=== PATIENT | female | born 1970 | race Caucasian/White ===

== ENCOUNTER 2017-05-25 17:06 | Outpatient (CLI) | END 2017-05-25 17:07 | disposition home or self-care (01) | LOC: LAB 17:06 | PROVIDERS: ATTEND Emergency Medicine | DX: B35.3 Tinea pedis (principal); I10 Essential (primary) hypertension | CPT/HCPCS: 36415; 80053; 85025 ==

== ENCOUNTER 2017-06-13 15:34 | Outpatient (CLI) ==
[2017-06-14 12:00] VITALS: BMI 18.6
== END 2017-06-13 15:35 | disposition left against medical advice (07) ==
LOC: AMBL 15:34
PROVIDERS: ATTEND Family Medicine
DX: S00.33XA Contusion of nose, initial encounter (principal); S49.91XA Unspecified injury of right shoulder and upper arm, initial encounter; S09.93XA Unspecified injury of face, initial encounter; S09.92XA Unspecified injury of nose, initial encounter; Y04.2XXA Assault by strike against or bumped into by another person, initial encounter

== ENCOUNTER 2017-06-14 11:49 | Emergency (ER) ==
[2017-06-14 12:00] VITALS: BP 132/88; TEMP 98.3; BMI 18.6
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
--- NOTE | 2017-06-14 13:02 | CT ---
EXAM: CT FACIAL BONES HISTORY: Facial injury, pain. TECHNIQUE: CT facial bones without contrast. 3-mm axial sections. Coronal and sagital reformations . FINDINGS: There is a fracture of the anterior maxillary spine which may be acute. No other definite fractures are seen. Orbits are intact. Mandible is intact and the temporomandibular joints well situated. In traorbital spaces are clear. No peripheral soft tissue hematoma. Paranasal sinuses are clear and the mastoid processes aerated. IMPRESSION: Anterior maxillary spine minimally displaced fracture may be acute. No other fractures a re identified.
== END 2017-06-14 14:10 | disposition home or self-care (01) ==
LOC: ED 11:49
DX: S02.19XA Other fracture of base of skull, initial encounter for closed fracture (principal); Y09 Assault by unspecified means; F17.210 Nicotine dependence, cigarettes, uncomplicated
CPT/HCPCS: 99283